=== PATIENT | male | born 1970 | race Caucasian/White ===

== ENCOUNTER 2020-04-29 10:15 | Emergency (ER) | payer SELFPAY ==
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
== END 2020-04-29 11:45 | disposition home or self-care (01) ==
LOC: JD.ED 10:15
DX: M54.31 Sciatica, right side (principal)
CPT/HCPCS: 73552-26-RT; 73552-RT; 99283; 99283-25

== ENCOUNTER 2023-03-17 19:41 | Emergency (ER) | payer SELFPAY | END 2023-03-17 23:41 | disposition home or self-care (01) | LOC: JD.ED 19:41 | DX: M79.89 Other specified soft tissue disorders (principal) | CPT/HCPCS: 36415; 80053; 83880; 85025; 86140; 93971-26-RT; 93971-RT; 99283; 99284 ==